=== PATIENT | female | born 1990 | race Caucasian/White ===

== ENCOUNTER 2020-10-08 21:48 | Emergency (ER) | payer MEDICAID ==
[~2020-10-08] VITALS: Ht 162.6 cm; Wt 56.7 kg
--- NOTE | 2020-10-08 21:56 | NUR ---
30 y/o female presents for sunburn & what she believes to be a sort of allergic reaction. [place] was [place] ([place]) and got sunburned. Applied several topical treatments + claritin with no relief. No other issues present at this time.
[2020-10-08] MEDS ORDERED: OXYC-128 PO (22:12)
--- NOTE | 2020-10-08 22:19 | NUR ---
Patient discharged to home in stable condition. Written and verbal after care instructions given. Patient verbalizes understanding of instructions. Stressed follow up or return to ER for worsening s/s. All belongings with patient. Steady gait.
[2020-10-08 22:20] VITALS: BP 118/81
== END 2020-10-08 22:18 | disposition home or self-care (01) ==
LOC: ER 21:50
DX: L55.1 Sunburn of second degree (principal)
CPT/HCPCS: A4663

== ENCOUNTER 2022-07-22 21:33 | Emergency (ER) | payer MEDICAID ==
[~2022-07-22] VITALS: Ht 162.6 cm; Wt 52.2 kg
[~2022-07-22 21:33] MED LIST: OXYC-128 PO
[2022-07-22] MEDS ORDERED: ONDANSETRON 4 MG/2 ML VIAL IV ONE (22:00)
[2022-07-22] MEDS ORDERED: HYDROMORPHONE 1 MG/1 ML DISP.SYRIN IV ONE (22:00)
--- NOTE | 2022-07-22 22:05 | NUR ---
Patient ambulated into room #4, with c/o abd pain. Informed of plan of care, assisted into gown, placed on monitor, urine collected, #18g established in left ac, blood collected and sent to lab. No s/s of any distress noted at this time. will continue to monitor.
[2022-07-22 22:07] LABS: HEMATOCRIT 40.7 % (31.2-41.9); MEAN CORPUSCULAR HEMOGLOBIN 30.7 uug (24.7-32.8); MEAN CORPUSCULAR VOLUME 93.9 fL (75.5-95.3); PLATELET COUNT (AUTO) 302 K/uL (179-408)
[2022-07-22 22:08] LABS: *BILIRUBIN,URIN NEGATIVE (NEGATIVE); *COLOR,URINE YELLOW (YELLOW); *KETONES,URINE NEGATIVE (NEGATIVE); *UROBILINOGEN,URINE 0.2 E.U./dl (NORMAL); LEUKOCYTE ESTERASE ,URINE TRACE (NEGATIVE); NITRITE, URINE NEGATIVE (NEGATIVE); PH,URINE 7.5 (5.0-8.0); UGLUCOSE NEGATIVE (NEGATIVE)
[2022-07-22] MEDS ORDERED: ONDANSETRON 4 MG/2 ML VIAL ONE (22:12)
[2022-07-22] MEDS ORDERED: HYDROMORPHONE 1 MG/1 ML DISP.SYRIN ONE (22:13)
[2022-07-22 22:15] LABS: *BLOOD, URINE TRACE (NEGATIVE); *CLARITY,URINE HAZY (CLEAR)
[2022-07-22 22:21] LABS: BILIRUBIN,DIRECT 0.1 mg/dL (0.0-0.2); BILIRUBIN,TOTAL 0.6 mg/dL (0.2-1.0); CREATININE 0.6 mg/dL (0.6-1.3); POTASSIUM 3.7 mmol/L (3.5-5.1); TOTAL PROTEIN, SERUM 7.8 g/dL (6.4-8.2)
[2022-07-22 22:38] LABS: *URINE HCG, QUAL NEGATIVE (NEGATIVE); BACTERIA,URINE FEW /HPF (NONE SEEN); SQUAMOUS EPITHELIAL CELL,UR FEW /HPF (NONE SEEN)
--- NOTE | 2022-07-22 23:23 | NUR ---
Ultrasound at bedside, no change in prior assessment.
[2022-07-22] MEDS ORDERED: ONDA4TAB5 PO (23:43)
[2022-07-22] MEDS ORDERED: HYDR-4209 PO (23:43)
[2022-07-23 00:01] VITALS: BP 149/60
== END 2022-07-23 00:02 | disposition home or self-care (01) ==
LOC: ER 21:33
DX: G89.29 Other chronic pain (principal); R10.9 Unspecified abdominal pain; R63.4 Abnormal weight loss; Z68.1 Body mass index [BMI] 19.9 or less, adult
CPT/HCPCS: 99284; 74176; 96374; 76705; 96375; 80076; 80048; 81001; 84703; 83690; 85025; 36415; J2405; J1170; A4663

== ENCOUNTER 2023-02-24 09:11 | Emergency (ER) | payer MEDICAID ==
[~2023-02-24] VITALS: Ht 162.6 cm; Wt 50.8 kg
[~2023-02-24 09:11] MED LIST changes: +HYDR-4209 PO; +ONDA4TAB5 PO
[2023-02-24 09:35] VITALS: O2SAT 100
[2023-02-24] MEDS ORDERED: FLEET ENEMA 133 ML BOTTLE RC ONE ×2 (10:30→10:31)
== END 2023-02-24 11:51 | disposition home or self-care (01) ==
LOC: ER 09:11
DX: K56.41 Fecal impaction (principal); G89.29 Other chronic pain; R10.9 Unspecified abdominal pain; Z88.6 Allergy status to analgesic agent; Z79.899 Other long term (current) drug therapy
CPT/HCPCS: A4663